=== PATIENT | female | born 1970 | race Caucasian/White ===

== ENCOUNTER 2017-02-24 12:21 | Emergency (ER) | payer BC ==
--- NOTE | 2017-02-24 13:59 | ERPHSYRPT ---
- History of Present Illness Time Seen by Provider: 02/24/17 13:51 Source: patient Exam Limitations: no limitations Patient Subjective Stated Complaint: PT REPORTS FEELING DIZZY WHEN SHE ATTEMPTED TO WALK BACK TO HER COUCH PT REPORTS SHE PASSED OUT-STATES SHE WOKE UP WITH HALF HER SANDWHICH STILL IN HER HAND LOOKING UP AT THE CEILING-STATES THAT SHE CUT BACK OF HEAD-DENIES N/V-PT STATES THAT HER BP HAS BEEN "ALL OVER THE PLACE" THIS PAST WEEK Triage Nursing Assessment: PT PALE WARM ET [id number] ALL QUESTIONS CORRECTLY-MOVING ALL EXTREMITIES WTIH EASE-PUPILS RESPONSIVE-SMALL LAC NOTED WITH BLEEDING CONTROLLED 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 She was in the kitchen fixing a peanut butter sandwich which she passed out. She woke up on the floor still holding the peanut butter sandwich. She hit the back of her head causing a laceration and bleeding. She now has a headache. She denies chest pain. Her past medical history is significant for ADD, depression, asthma, and hypertension. Witnessed: unwitnessed Prior Episodes: single episode today Timing/Duration: today Precipitating Factors: none Context: standing Loss of Consciousness: brief (seconds) Charcter of event(s): collapsed, became unresponsive Allergies/Adverse Reactions: No Known Drug Allergies Allergy (Verified 02/24/17 12:46) Home Medications: Fluoxetine HCl [Prozac] 30 mg PO DAILY 08/10/12 [History] Aspirin [Aspir-Low] 81 mg PO DAILY 02/24/17 [History] Clonidine HCl 0.1 mg [Catapres 0.1 MG] 0.2 mg PO DAILY 02/24/17 [History] Ipratropium/Albuterol Sulfate [Combivent Inhaler] 14.7 gm IH UD 02/24/17 [ History] Lisdexamfetamine Dimesylate [Vyvanse] 30 mg PO DAILY 02/24/17 [History] Losartan Potassium 50 mg [Cozaar 50 MG] 50 mg PO DAILY 02/24/17 [History] Verapamil HCl [Verapamil ER] 240 mg PO BID 02/24/17 [History] Hx Tetanus, Diphtheria Vaccination/Date Given: Yes Hx Influenza Vaccination/Date Given: Yes Hx Pneumococcal Vaccination/Date Given: No Immunizations Up to Date: Yes - Past Medical History Pertinent Past Medical History: Yes Cardiac History: Hypertension Respiratory History: Asthma Psycho-Social History: Depression Other Medical History: Allergies, ADHD - Past Surgical History Past Surgical History: No - Social History Smoking Status: Never smoker Exposure to second hand smoke: No Drug Use: none Patient Lives Alone: No - Female History Hx Last Menstrual Period: 2 WKS AGO - Review of Systems Constitutional: No Fever, No Chills Eyes: No Symptoms Ears, Nose, & Throat: No Symptoms Respiratory: No Cough, No Dyspnea Cardiac: No Chest Pain, No Edema, No Syncope Abdominal/Gastrointestinal: No Abdominal Pain, No Nausea, No Vomiting, No Diarrhea Genitourinary Symptoms: No Dysuria Musculoskeletal: Fall, Injury Skin: Other (laceration) Neurological: No Dizziness, No Focal Weakness, No Sensory Changes Psychological: No Symptoms Endocrine: No Symptoms Hematologic/Lymphatic: No Symptoms Immunological/Allergic: No Symptoms All Other Systems: Reviewed and Negative Physical Exam - Nursing Vital Signs Nursing Vital Signs: Initial Vital Signs Temperature 98.3 F 02/24/17 12:38 Pulse Rate 76 02/24/17 12:38 Respiratory Rate 18 02/24/17 12:38 Blood Pressure 152/87 02/24/17 12:38 O2 Sat by Pulse Oximetry 96 02/24/17 12:38 Pain Scale Pain Intensity 7 - Sandra Coma Scale Best Eye Response ([place]): (4) open spontaneously Best Verbal Response (Sandra): (5) oriented Best Motor Response ([place]): (6) obeys commands Sandra Total: 15 - Physical Exam General Appearance: no apparent distress, alert Eye Exam: bilateral eye: normal inspection Ears, Nose, Throat Exam: normal ENT inspection, pharynx normal, moist mucous membranes Neck Exam: normal inspection, non-tender, supple, full range of motion Respiratory: normal breath sounds, lungs clear, No chest tenderness, No respiratory distress Cardiovascular: regular rate/rhythm, capillary refill <2 sec, No murmur, No pulse deficit Gastrointestinal: soft, No tenderness, No distention, No mass Pelvic Exam: not done Rectal Exam: not done Back Exam: normal inspection, normal range of motion, No CVA tenderness, No vertebral tenderness Extremity Exam: normal inspection, normal range of motion, pelvis stable, No tenderness Mental Status: alert, oriented x 3, 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 Exam: normal speech, PERRL, No facial droop Coordination/Gait: normal finger to nose Skin Exam: laceration (1 cm lac to occiput.) SpO2: 96 Oxygen Delivery: Room Air Procedures - Laceration/Wound Repair Head Wound Location: head (occiput) Wound Length (cm): 1 Wound's Depth, Shape: superficial, linear Wound Explored: clean Hibiclens Prep: Yes Wound Repaired With: Nye Number of Sutures: 2 - Course EKG Interpreted by Me: RATE, Sinus Rhythm, NORMAL AXIS, NORMAL INTERVALS, NORMAL QRS, NORMAL ST-T - Radiology Exams Chest X-ray Interpretation: Negative (per Dr Mac) - CT Exams Head CT Interpretation: Negative (per Dr Mac) Cervical Spine CT Interpretation: Negative, No Fracture (per Dr Mac) Ordered Tests: Active Orders 24 hr Category Date Time Status Accucheck STAT Care 02/24/17 12:52 Active Offal Trimmer STAT Care 02/24/17 12:53 Active EKG-ER Only STAT Care 02/24/17 13:56 Active IV Insertion STAT Care 02/24/17 12:52 Active Orthostatic Vital Signs STAT Care 02/24/17 12:52 Active Pulse Oximetry (ED) STAT Care 02/24/17 12:52 Active CERVICAL SPINE WO CONTRAST [CT] Stat Exams 02/24/17 13:57 Completed CHEST 2 VIEWS (PA AND LAT) Stat Exams 02/24/17 13:58 Completed HEAD WITHOUT CONTRAST [CT] Stat Exams 02/24/17 13:57 Completed CBC W DIFF Stat Lab 02/24/17 15:00 Completed CMP Stat Lab 02/24/17 15:00 Completed ETHYL ALCOHOL Stat Lab 02/24/17 15:00 Completed TROPONIN Q3H Lab 02/24/17 15:00 Completed TROPONIN Q3H Lab 02/24/17 17:00 Ordered TROPONIN Q3H Lab 02/24/17 20:00 Ordered TROPONIN Q3H Lab 02/24/17 23:00 Ordered TROPONIN Q3H Lab 02/25/17 02:00 Ordered UA W/RFX UR CULTURE Stat Lab 02/24/17 15:00 Completed Medication Summary Discontinued Medications Generic Name Dose Route Start Last Admin Trade Name Freq PRN Reason Stop Dose Admin Sodium Chloride Confirm 02/24/17 16:50 Sodium Chloride 0.9% 100 Ml Ivpb Administered 02/24/17 16:51 Dose 100 mls @ ud IV .STK-MED ONE Ketorolac Tromethamine 30 mg 02/24/17 16:38 02/24/17 16:59 Toradol 30 Mg Injection IV 02/24/17 16:39 30 mg STAT ONE Administration Ketorolac Tromethamine Confirm 02/24/17 16:50 Toradol 30 Mg Injection Administered 02/24/17 16:51 Dose 30 mg .ROUTE .STK-MED ONE Ondansetron HCl 4 mg 02/24/17 16:38 02/24/17 17:03 Zofran 4 Mg/2 Ml Vial IV 02/24/17 16:39 Not Given STAT ONE Promethazine HCl 25 mg 02/24/17 16:39 02/24/17 16:59 Phenergan 25 Mg Inj IV 02/24/17 16:40 25 mg STAT ONE Administration Promethazine HCl Confirm 02/24/17 16:49 Phenergan 25 Mg Inj Administered 02/24/17 16:50 Dose 25 mg .ROUTE .STK-MED ONE Lab/Rad Data: Laboratory Result Diagrams 02/24/17 15:00 02/24/17 15:00 Laboratory Results 02/24/17 02/24/17 02/24/17 Range/Units 15:00 15:00 15:00 WBC (4.0-10.5) K/mm3 RBC (4.1-5.4) M/mm3 Hgb (12.0-16.0) gm/dl Hct (35-47) % MCV (78-100) fl MCH (26-32) pg MCHC (32-36) g/dl RDW (11.5-14.0) % Plt Count (150-450) K/mm3 MPV (6-9.5) fl Gran % (36.0-66.0) % Lymphocytes % (24.0-44.0) % Monocytes % (0.0-12.0) % Eosinophils % (0.00-5.0) % Basophils % (0.0-0.4) % Basophils # (0-0.4) Sodium 134 L (136-145) mEq/L Potassium 4.4 (3.5-5.1) mEq/L Chloride 101 (98-107) mEq/L Carbon Dioxide 26.6 (21-32) mEq/L Anion Gap 10.9 (5-15) MEQ/L BUN 12 (9-20) mg/dL Creatinine 0.80 (0.55-1.30) mg/dl Estimated GFR > 60 ML/MIN Glucose 101 (70-110) MG/DL Calcium 9.0 (8.5-10.1) mg/dL Total Bilirubin 0.20 (0.2-1.0) mg/dL AST 11 L (15-37) U/L ALT 13 (12-78) U/L Alkaline Phosphatase 60 (46-116) U/L Troponin I < 0.017 (0.000-0.056) ng/ml Serum Total Protein 6.8 (6.4-8.2) gm/dL Albumin 3.2 L (3.4-5.0) g/dL Ur Collection Type CLEAN CATCH Urine Color YELLOW (YELLOW) Urine Appearance CLEAR (CLEAR) Urine pH 6.5 (5-6) Ur Specific Roy 1.005 (1.005-1.025) Urine Protein NEGATIVE (Negative) Urine Ketones NEGATIVE (NEGATIVE) Urine Blood NEGATIVE (0-5) Luis/ul Urine Nitrite NEGATIVE (NEGATIVE) Urine Bilirubin NEGATIVE (NEGATIVE) Urine Urobilinogen NORMAL (0-1) mg/dL Ur Leukocyte Esterase NEGATIVE (NEGATIVE) Urine Glucose NEGATIVE (NEGATIVE) mg/dL Ethyl Alcohol < 0.010 (0.00-0.01) % Specimen Received 02/24/17 1430 02/24/17 Range/Units 15:00 WBC 9.6 (4.0-10.5) K/mm3 RBC 3.96 L (4.1-5.4) M/mm3 Hgb 11.1 L (12.0-16.0) gm/dl Hct 34.8 L (35-47) % MCV 87.9 (78-100) fl MCH 28.0 (26-32) pg MCHC 31.9 L (32-36) g/dl RDW 15.7 H (11.5-14.0) % Plt Count 415 (150-450) K/mm3 MPV 9.0 (6-9.5) fl Gran % 72.9 H (36.0-66.0) % Lymphocytes % 19.2 L (24.0-44.0) % Monocytes % 7.1 (0.0-12.0) % Eosinophils % 0.6 (0.00-5.0) % Basophils % 0.2 (0.0-0.4) % Basophils # 0.02 (0-0.4) Sodium (136-145) mEq/L Potassium (3.5-5.1) mEq/L Chloride (98-107) mEq/L Carbon Dioxide (21-32) mEq/L Anion Gap (5-15) MEQ/L BUN (9-20) mg/dL Creatinine (0.55-1.30) mg/dl Estimated GFR ML/MIN Glucose (70-110) MG/DL Calcium (8.5-10.1) mg/dL Total Bilirubin (0.2-1.0) mg/dL AST (15-37) U/L ALT (12-78) U/L Alkaline Phosphatase (46-116) U/L Troponin I (0.000-0.056) ng/ml Serum Total Protein (6.4-8.2) gm/dL Albumin (3.4-5.0) g/dL Ur Collection Type Urine Color (YELLOW) Urine Appearance (CLEAR) Urine pH (5-6) Ur Specific Roy (1.005-1.025) Urine Protein (Negative) Urine Ketones (NEGATIVE) Urine Blood (0-5) Luis/ul Urine Nitrite (NEGATIVE) Urine Bilirubin (NEGATIVE) Urine Urobilinogen (0-1) mg/dL Ur Leukocyte Esterase (NEGATIVE) Urine Glucose (NEGATIVE) mg/dL Ethyl Alcohol (0.00-0.01) % Specimen Received - Progress Progress: improved Counseled pt/family regarding: lab results, diagnosis, need for follow-up, rad results - Departure Time of Disposition: 17:39 Departure Disposition: Home Clinical Impression: Syncopal episodes, Scalp laceration, Headache Condition: Stable Critical Care Time: No Referrals: EMILY SHEIKH JR [Primary Care Provider] - Additional Instructions: You had a syncopal episode that resulted in you falling, striking your head, and causing a laceration. The laceration was closed with 2 cristobal that we'll need to be removed in 9-10 days by her local physician. While in the ER you were given Toradol 30 mg IV and Phenergan 25 mg IV. Take Tylenol 3 one tablet every 4-6 hours as needed. Follow-up as needed. Prescriptions: Codeine Phosphate/APAP #3 [Tylenol #3 Tablet] 1 tab PO Q4-6HPRN PRN #6 tablet PRN Reason: Pain
--- NOTE | 2017-02-24 14:29 | XRAY ---
Indication: Syncope. Comparison: None PA/lateral chest demonstrates normal heart, lungs, and bony thorax with a few incidental calcified granulomas.
--- NOTE | 2017-02-24 14:56 | XRAY ---
Indication: Posterior head injury following fall. Multiple contiguous axial images obtained through the head without contrast. Comparison: None Normal appearing brain parenchyma, ventricles, and bony calvarium. Visualized paranasal sinuses and mastoid air cells are clear. Impression: Normal CT head without contrast exam. CT DI 48.76
--- NOTE | 2017-02-24 15:00 | XRAY ---
Indication: Posterior head injury following fall. Multiple contiguous axial images obtained through the cervical spine. Sagittal and coronal reformatted images obtained. Comparison: None Axial images negative for acute fracture, suspicious bony lesions, or spinal canal stenosis. Mild C4-C7 degenerative endplate spurring. Sagittal and coronal reformatted images demonstrates mild lordotic reversal with mild C5-C7 disc space narrowing. No acute compression fracture, subluxation, or jumped facet. Normal appearing craniocervical junction. Visualized noncontrasted soft tissues including lung apices unremarkable. Impression: 1. Negative acute fracture/subluxation. Lordotic reversal, positional versus paraspinal spasm. 2. C4-C7 degenerative disc disease. CT DI 131.32
[2017-02-24 15:09] LABS: BASOPHIL % 0.2 % (0.0-0.4); Eosinophil % 0.6 % (0.00-5.0); Granulocytes % 72.9 % (36.0-66.0); Lymphocytes % 19.2 % (24.0-44.0); Mean Cell Volume 87.9 fl (78-100); Monocytes % 7.1 % (0.0-12.0); Platelet Count 415 K/mm3 (150-450); Red Blood Count 3.96 M/mm3 (4.1-5.4); Red Cell Distribution Width 15.7 % (11.5-14.0); White Blood Count 9.6 K/mm3 (4.0-10.5)
[2017-02-24 15:34] LABS: ALBUMIN 3.2 g/dL (3.4-5.0); ALKALINE PHOSPHATASE 60 U/L (46-116); ANION GAP 10.9 MEQ/L (5-15); BLOOD UREA NITROGEN 12 mg/dL (9-20); CHLORIDE 101 mEq/L (98-107); Carbon Dioxide 26.6 mEq/L (21-32); ETHYL ALCOHOL < 0.010 % (0.00-0.01); Glucose 101 MG/DL (70-110); Potassium 4.4 mEq/L (3.5-5.1); SGOT/AST 11 U/L (15-37); SGPT/ALT 13 U/L (12-78); SODIUM 134 mEq/L (136-145); Total Protein 6.8 gm/dL (6.4-8.2)
[2017-02-24 15:50] LABS: Collection Type CLEAN CATCH
[2017-02-24 15:51] LABS: ADD URINE CULTURE? NO (NO); Bilirubin NEGATIVE (NEGATIVE); Blood NEGATIVE Ery/ul (0-5); COMPLETE URINE MICROSCOPIC? NO; Glucose NEGATIVE (NEGATIVE); Leukocyte Esterase NEGATIVE (NEGATIVE)
[2017-02-24] MEDS ORDERED: TORAdol 30 mg Injection IV ONE (16:38)
[2017-02-24] MEDS ORDERED: Zofran 4 MG/2 ML VIAL IV ONE (16:38)
[2017-02-24] MEDS ORDERED: Phenergan 25 MG INJ IV ONE (16:39)
[2017-02-24] MEDS ORDERED: Phenergan 25 MG INJ ONE (16:49)
[2017-02-24] MEDS ORDERED: TORAdol 30 mg Injection ONE (16:50)
[2017-02-24] MEDS ORDERED: Sodium Chloride 0.9% 100 ML IVPB 0 ML IV ONE (16:50)
[2017-02-24 17:51] VITALS: BP 131/76; PULSE 64; O2SAT 100
== END 2017-02-24 17:51 | disposition home or self-care (01) ==
LOC: ED 12:21
PROC: 0HQ0XZZ Repair Scalp Skin, External Approach (ICD-10-PCS; principal; 2017-02-24)
DX: R55 Syncope and collapse (principal); S01.01XA Laceration without foreign body of scalp, initial encounter; W01.0XXA Fall on same level from slipping, tripping and stumbling without subsequent striking against object, initial encounter
CPT/HCPCS: 12001; 36000; 36415; 70450; 71020; 72125; 80053; 81002; 82962; 84484; 85025; 93005; 93041; 99284; 99285; G0481; J1885; J2550